=== PATIENT | male | born 1955 | race Caucasian/White ===

== ENCOUNTER 2021-06-17 10:01 | Emergency (ER) | payer OTHER, SELFPAY ==
[2021-06-17 10:03] VITALS: BP 134/75; PULSE 113; RESP 18; TEMP 36.8; O2SAT 98; BMI 24.4
--- NOTE | 2021-06-17 10:23 | EX.ED.DYSGE1 ---
HPI History of Present Illness Chief Complaint: Back Informant: patient and family Onset/Context/Timing Onset: Days Current Severity: Moderate Maximum Severity: Moderate Narrative Narrative: Patient presents with worsened back pain and left leg weakness for the past 2 to 3 days. Patient was recently diagnosed with non-small cell lung cancer and has known mets to the brain and spine. Because the leg weakness has developed in the past couple days he states his cancer doctor sent him in for an MRI of his back. He has been following with a oncologist in the [facility], but states he is going to be seeing the local oncologist here in [place]. He does not yet have an appointment. Patient states he just finished radiation to the back of his cranium. That is the only cancer treatment he has had thus far. [facility] Medical History (Updated 06/17/21 @ 13:[address] 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 Non-small cell lung cancer Allergy/AdvReac Type Severity Reaction Status Date / Time adhesive Allergy Rash Verified 06/17/21 10:04 amoxicillin Allergy Hives Verified 06/17/21 10:04 Social History Smoking Status: Former smoker ROS ROS ED Constitutional Constitutional ED: Denies chills or fever(s) Eyes Eyes: Denies change in vision ENT ENT ED: Denies sore throat Cardiovascular Cardiovascular: Denies chest pain Respiratory/Chest Respiratory/Chest: Denies cough or dyspnea Gastrointestinal Gastrointestinal: Denies abdominal pain, diarrhea, nausea or vomiting Genitourinary Genitourinary ED: Denies dysuria Musculoskeletal Musculoskeletal: Reports back pain Integumentary Denies rash Neurologic Neurologic: Reports weakness; Denies headache(s) Allergic/Immunologic Allergic/Immunologic ED: Denies urticaria EXAM Physical Exam Const Vital Signs: 06/17/21 10:03 Temperature 98.2 F Temperature Source Temporal Pulse Rate 113 H Respiratory Rate 18 Blood Pressure 134/75 H Blood Pressure Mean 94 Pulse Ox 98 Oxygen Delivery Method Room Air Positive well nourished and well developed General Appearance ED: well developed HEENT Reports normocephalic and head/scalp atraumatic Eyes PERRL and EOMs intact bilaterally Neck supple Chest Wall inspection of chest normal and palpation of chest normal Resp normal respiratory effort and clear to auscultation bilaterally Cardio regular rate and regular rhythm GI normal to inspection, nondistended, normoactive bowel sounds Palpation: soft and tender RUQ (Patient reports known mets to the right lower ribs.) Back/Spine Lumbar Spine / Lower Back: lumbar spinal tenderness Extremity normal to inspection Neuro oriented x3 Neuro Narrative: Normal sensation and strong distal pulses to the bilateral lower extremities. 1+ right patellar reflex. No patellar reflex noted on the left. Sensorium / Orientation: alert Psych mental status grossly normal Skin no rashes or lesions noted MDM MDM MDM Narrative Medical decision making narrative: Lab work and lumbar MRI ordered. Lab Data Attestation: I reviewed the patient's lab results. Labs: Laboratory Results - last 24 hr 06/17/21 06/17/21 10:30 10:30 WBC 12.7 H RBC 4.12 L Hgb 13.2 Hct 38.9 L MCV 94.4 H MCH 32.0 MCHC 33.9 RDW Std Deviation 44.4 H RDW Coeff of Shabana 12.9 Plt Count 296 MPV 8.6 Immature Gran % (Auto) 0.600 Neut % (Auto) 85.3 H Lymph % (Auto) 5.4 L Sandoval % (Auto) 8.2 Eos % (Auto) 0.3 Baso % (Auto) 0.2 Absolute Neuts (auto) 10.8 H Absolute Lymphs (auto) 0.68 L Nucleated RBC % 0 Sodium 139 Potassium 4.0 Chloride 103 Carbon Dioxide 29.0 Anion Gap 7 BUN 25 H Creatinine 1.07 Estim Creat Clear Calc 75.55 Est GFR (MDRD) Af Amer 89 Est GFR (MDRD) Non-Af 74 BUN/Creatinine Ratio 23.4 H Glucose 102 Calcium 9.2 Radiography Diagnostic Testing: Radiology Impression Lumbar Spine MRI 06/17/21 10:51 IMPRESSION: Numerous osseous lesions, consistent with metastatic disease. No demonstrated epidural disease. Moderate/severe multilevel degenerative changes. Electronically Signed: Amando Clifford MD at 13:14 EDT Tel , Service support , Treatment and Re-Evaluation Comments:: Patient was given a dose of Dilaudid prior to his MRI. MRI does reveal numerous osseous lesions consistent with metastatic disease. No demonstrated epidural disease. I was advised by nursing staff that the patient was requesting discharge as he needed to go home and take care of his dog. I presented to bedside and discussed the test results with him. At this time I will provide him with the phone number for [facility] and will discuss his case with them. He will call tomorrow for close follow-up. Discharge Plan Triage Chief Complaint: Back ED Provider: Liss Chu Dx/Rx/DC Orders Clinical Impression: Metastatic cancer to spine Instructions: Understanding Bone Metastasis [facility] Care Provider: [facility] Referrals: Mango De La Vega MD [STAFF PHYSICIAN] - As soon as possible [facility] [Primary Care Provider] - Disposition Disposition: Home, Self Care
[2021-06-17 10:50] LABS: Absolute Lymphocyte Count 0.68 X10^3/uL (0.83-4.51); Absolute Neutrophil Count 10.8 X10^3/uL (2.0-7.7); Basophil# 0.02 X10^3/uL; Basophil% 0.2 % (0-1); Eosinophil# 0.04 X10^3/uL; Eosinophils% 0.3 % (0-5); Hematocrit 38.9 % (40-54); Hemoglobin 13.2 g/dL (13.0-16.5); Lymphocyte # 0.68 X10^3/ul (0.83-4.51); Lymphocyte % 5.4 % (19-41); Mean Corp Hgb Conc 33.9 g/dL (32-36); Mean Corpuscular Volume 94.4 fL (80-94); Mean Platelet Vol. 8.6 fl (6.2-12.0); Monocyte# 1.04 X10^3/uL; Monocyte% 8.2 % (0-10); NRBC Flagged by Analyzer 0 % (0-5); Neutrophil # 10.84 X10^3/uL (2.7-7.7); Neutrophil % 85.3 % (47-70); Platelet Count 296 K/mm3 (150-450); RBC Distribution Width CV 12.9 % (11.6-14.6); RBC Distribution Width SD 44.4 fl (35.1-43.9); Red Blood Count 4.12 M/mm3 (4.6-6.2); White Blood Count 12.7 K/mm3 (4.4-11.0)
--- NOTE | 2021-06-17 10:51 | MRI_ITS ---
STUDY: MRI LUMBAR SPINE WITH AND WITHOUT CONTRAST REASON FOR EXAM: Male, 65 years old. left leg weakness -- spinal mets TECHNIQUE: Standardized fat and water weighted pulse sequences were obtained in the sagittal and axial planes. DOTAREM 17ML IV was administered for the contrast portion of the examination. COMPARISON: None FINDINGS: There is straightening of the normal lumbar lordosis. There is no substantial scoliosis. Normal conus medullaris that terminates at the L1. Bone marrow is heterogeneous with numerous vertebral and posterior element lesions, consistent with history of metastatic disease. There is no evidence of epidural disease. Multiple sacral lesions are also noted. L1-2: There is moderate disc space narrowing and endplates spondylosis. Mild disc bulge and moderate facet arthropathy with mild central canal stenosis. Minimal right and mild left foraminal stenosis. L2-3: There is severe disc space narrowing and endplates spondylosis. Moderate disc osteophyte complex and facet arthropathy with mild central canal stenosis. Moderate right and mild left foraminal stenosis. L3-4: There is moderate disc space narrowing and endplates spondylosis. Moderate disc osteophyte complex and facet arthropathy with mild central canal stenosis. Moderate right and mild left foraminal stenosis. L4-5: There is moderate disc space narrowing and endplates spondylosis. Moderate disc osteophyte complex and facet arthropathy asymmetric to the left with moderate left foraminal stenosis. No significant central canal or right foraminal stenosis. L5-S1: There is moderate disc space narrowing and endplates spondylosis. Mild disc bulge and facet arthropathy asymmetric to left with moderate left foraminal stenosis. No significant central canal or right foraminal stenosis. Normal visualized sacral ala. MRI/Spine Lumbar W/WO Contrast IMPRESSION: Numerous osseous lesions, consistent with metastatic disease. No demonstrated epidural disease. Moderate/severe multilevel degenerative changes. Electronically Signed: Amando Clifford MD at 13:14 EDT Tel , Service support ,
--- NOTE | 2021-06-17 10:53 | ED.RN ---
mri called and will not be able to get pt until 1215. Pt is aware
[2021-06-17 11:06] LABS: Anion Gap 7 (5-15); BUN 25 mg/dL (7-18); BUN/Creat Ratio 23.4 RATIO (10-20); Calcium,Total 9.2 mg/dL (8.5-10.1); Chloride 103 mmol/L (98-107); Creatinine, Serum 1.07 mg/dL (0.70-1.30); EST Glomerular Filtration Rate 74 mL/min (>60); Est Glom Filt Rate - Afr Amer 89 mL/min (>60); Estimated Creatinine Clearance 75.55 ml/min; Glucose 102 mg/dL (74-106); Sodium Level 139 mmol/L (136-145)
[2021-06-17] MEDS: Ondansetron 4 MG/2 ML Vial IV (11:46)
[2021-06-17] MEDS: HYDROmorphone 1 MG/ML Syringe IV (11:49)
--- NOTE | 2021-06-17 12:01 | ED.RN ---
PT TO MRI.PT EATING CHIPS AND CANDY BAR AND DRINKING MOUNTAIN DEW.PT TOLD NOT TO EAT ANYMORE.
[2021-06-17 14:13] VITALS: PULSE 86; RESP 19; O2SAT 96
== END 2021-06-17 14:15 | disposition home or self-care (01) ==
PROVIDERS: Emergency Provider Emergency Medicine
DX: C79.51 Secondary malignant neoplasm of bone (principal); C34.90 Malignant neoplasm of unspecified part of unspecified bronchus or lung; C79.31 Secondary malignant neoplasm of brain; Z87.891 Personal history of nicotine dependence
CPT/HCPCS: 72158; 80048; 85025; 96374; 96375; 99283; A9575; A4216; J2405

== ENCOUNTER 2021-07-01 11:06 | Inpatient (IN) | payer OTHER, SELFPAY ==
[2021-07-01 11:07] VITALS: BP 130/83; PULSE 103; RESP 16; TEMP 36.5; O2SAT 92; BMI 23.4
--- NOTE | 2021-07-01 11:58 | EDS_ITS ---
HPI History of Present Illness Chief Complaint: Confusion Informant: patient and spouse/S.O. Onset/Context/Timing Onset: Days (4) Context: Gradual Onset Timing: Waxes and wanes Quality: disoriented/confused Current Severity: Moderate Maximum Severity: Moderate Worsened by: n/a Relieved by: n/a Associated Symptoms Associated Symptoms: headache, prod cough Narrative Narrative: Patient has some type of tumor in his brain that [facility] [place], he wants to stay local for for further treatment, so was referred to oncology here, he saw a radiation oncology today. They were concerned about the 's complaints about him being more confused lately. They state this occurred in the past when he had some bleeding associated with 1 or more of the tumors, so they present for evaluation regarding this. He had a Covid test the thinks that couple weeks ago that was negative, he has had a little more shortness of breath in the mornings lately and coughing more than usual. No fevers or chills. He does have edematous legs for about the past week, he has also been on Decadron for weeks or months they are not quite sure. 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 Non-small cell lung cancer Allergy/AdvReac Type Severity Reaction Status Date / Time adhesive Allergy Rash Verified 07/01/21 11:10 amoxicillin Allergy Hives Verified 07/01/21 11:10 Social History Smoking Status: Former smoker ROS ROS ED Constitutional Constitutional ED: Denies chills or fever(s) Eyes Eyes: Denies change in vision or diplopia ENT ENT ED: Denies rhinorrhea or sore throat Cardiovascular Cardiovascular: Reports other Details: Chest soreness with coughing at times ; Denies palpitations Respiratory/Chest Respiratory/Chest: Reports as per HPI, cough and dyspnea Gastrointestinal Gastrointestinal: Denies abdominal pain, diarrhea, nausea or vomiting Genitourinary Genitourinary ED: Denies dysuria or hematuria Musculoskeletal Musculoskeletal: Denies back pain or neck pain Integumentary Denies abscess or rash Neurologic Neurologic: Reports as per HPI, behavior changes, confusion and headache(s); Denies abnormal speech, paresthesias or weakness Psychiatric Psychiatric: Denies anxiety or suicidal thoughts EXAM Physical Exam Const Vital Signs: 07/01/21 11:07 07/01/21 13:52 07/01/21 16:00 Temperature 97.7 F L Temperature Source Temporal Pulse Rate 103 H 98 Respiratory Rate 16 12 Blood Pressure 130/83 H 126/85 H Blood Pressure Mean 98 98 Pulse Ox 92 89 89 Oxygen Delivery Method Room Air Room Air Room Air Oxygen Flow Rate (L/min) 07/01/21 16:07 Temperature Temperature Source Pulse Rate 90 Respiratory Rate 16 Blood Pressure 134/89 H Blood Pressure Mean 104 Pulse Ox 96 Oxygen Delivery Method Room Air Oxygen Flow Rate (L/min) 2 Positive well nourished and well developed General Appearance ED: well developed and NAD HEENT Reports moist mucous membranes normocephalic and atraumatic Eyes PERRL and EOMs intact bilaterally Neck full ROM and supple Resp normal respiratory effort and clear to auscultation bilaterally Cardio regular rate, regular rhythm and no murmurs GI non-tender and non-distended Auscultation: normoactive bowel sounds Palpation: soft Back/Spine no CVA tenderness General Back: other FROM Extremity normal to inspection General Extremety ED: Yes edema; Negative for pulses abnormal or tenderness General Extremity: edema bilateral lower extremity Details: moderate; Negative for pulses abnormal Neuro oriented x3, CN's II-XII intact bilaterally and no sensory deficits noted Neuro Narrative: No aphasia. Oriented x3 at this time. Some conversational confusion however. Peripheral neurologic exam unremarkable. Sensorium / Orientation: awake and alert Motor Exam: strength 5/5 throughout Skin no rashes or lesions noted and no wounds MDM MDM MDM Narrative Medical decision making narrative: Patient remained clinically and hemodynamically stable, but while simply resting in bed waiting for results his oxygen saturations dropped down to 86 on room air, remained consistent with a good waveform the entire time. He was placed on 2 L nasal cannula which brought him up into the 90s. Chest x-ray suggests metastases that were already known about, as well as the possibility of a postobstructive pneumonia so a CT was advised, and this was obtained. Scan of the head shows no hemorrhage, masses that were already known, mass-effect with decrease in size of the fourth ventricle from normal; however, CT with IV contrast recommended to rule out petechial hemorrhage. This was done, it shows no hemorrhage, it does show multiple masses, the largest of which is 3 or 4 cm. The patient indicated that the gamma knife treatment he was getting was for an 8.2 cm lesion. This suggests that he did not have multiple metastases as we are seen here. He does not have an old scan for us to compare to as of recently. He states his neurosurgeon is Dr. [facility]. We attempted to call them, they do not have anyone by that name and it is unclear if this is a neurologist or a neurosurgeon. The patient CT of the chest does confirm postobstructive pneumonia, and he became hypoxic here so he was put on oxygen and treated with ceftriaxone and azithromycin empirically. Patient is not on home oxygen. I discussed with Dr. Eddy radiation oncology. He provided useful information. He states the patient did not have gamma knife at the [facility], he had whole brain radiation, the mets are known. Additionally, after our CTs were interpreted, the radiation oncology department loaded old imaging into our PACS system from [facility] where apparently he had recent studies. I am having radiology here do a comparison. The patient is aware that the radiation treatment to his spine that he is getting planned and the whole brain radiation he had our palliative treatments. He is following with a nurse practitioner in palliative care at the [facility] who is apparently coordinating his care, I had our area secretary call her and leave a message but we have received no return phone call from anyone from the [facility] at this time. The plan is to admit him here at this hospital simply due to the fact that he has an oxygen requirement for his pneumonia. Lab Data Attestation: I reviewed the patient's lab results. Labs: Laboratory Results - last 24 hr 07/01/21 07/01/21 12:10 12:10 WBC 8.9 RBC 3.96 L Hgb 12.3 L Hct 38.6 L MCV 97.5 H MCH 31.1 MCHC 31.9 L RDW Std Deviation 48.3 H RDW Coeff of Shabana 13.5 Plt Count 250 MPV 9.8 Immature Gran % (Auto) 0.900 Neut % (Auto) 88.1 H Lymph % (Auto) 6.2 L Jewell % (Auto) 4.4 Eos % (Auto) 0.2 Baso % (Auto) 0.2 Absolute Neuts (auto) 7.9 H Absolute Lymphs (auto) 0.55 L Nucleated RBC % 0 Differential Comment SCANNED Sodium 139 Potassium 4.3 Chloride 102 Carbon Dioxide 31.0 Anion Gap 6 BUN 19 H Creatinine 1.12 Estim Creat Clear Calc 72.17 Est GFR (MDRD) Af Amer 85 Est GFR (MDRD) Non-Af 70 BUN/Creatinine Ratio 17.0 Glucose 136 H Calcium 9.3 Troponin I High Sens 15 Radiography Diagnostic Testing: Radiology Impression Brain CT 07/01/21 11:58 IMPRESSION: Findings suggestive of cerebral and cerebellar metastasis. A repeat study with IV contrast or MRI is recommended for further evaluation. Electronically Signed: Robb Storm MD at 14:03 EDT , Service support , Chest X-Ray 07/01/21 12:16 IMPRESSION: Right hilar and right mediastinal fullness with findings suggestive of volume loss in the right upper lobe with the patchy infiltrate in the right lower lobe and blunting of the right cardiac phrenic angle. A CT scan of the thorax is recommended to rule out a right central mass with postobstructive pneumonitis. Blunting of the right costophrenic angle. Electronically Signed: Robb Storm MD at 12:52 EDT , Service support , Chest CT 07/01/21 14:18 IMPRESSION: Right hilar mass with evidence of a postobstructive pneumonitis of the right upper lobe and volume loss. Small right pleural effusion. Multiple small pulmonary nodules seen in the right lung. Plain metastasis. Electronically Signed: Robb Storm MD at 14:51 EDT , Service support , Brain CT 07/01/21 14:28 IMPRESSION: Multiple intracerebral and cerebellar metastasis as described with surrounding edema and mass effect. There is no evidence of a hemorrhage. Electronically Signed: Robb Storm MD at 14:58 EDT , Service support , EKG Initial EKG: Attestation: I personally reviewed and interpreted this EKG as follows: Interpretation: Sinus Rhythm and No Acute Injury Pattern Comments: normal Discharge Plan Triage Chief Complaint: Confusion ED Provider: Paddy Gan Dx/Rx/DC Orders Clinical Impression: Stage IV adenocarcinoma of lung, Bone metastases, Brain metastases, Postob structive pneumonia, Hypoxemia [facility]errals[facility] [Primary Care Provider] - Disposition Disposition: Acute Care Hospital [facility]
--- NOTE | 2021-07-01 11:58 | CT_ITS ---
STUDY: CT BRAIN WITHOUT CONTRAST REASON FOR EXAM: Male, 65 years old. Altered mental status. Visual hallucinations. History of non-small cell lung cancer. RADIATION DOSAGE (If Supplied By Facility): CTDIvol = ( 38.43 ) mGy, DLP = ( 741.51 ) mGycm TECHNIQUE: Transaxial CT imaging of the brain was performed without administration of intravenous contrast material. Individualized dose optimization techniques were used for this CT. COMPARISON: No relevant priors. FINDINGS: Normal soft tissue structures. Normal calvarium. Normal size ventricles and extra-axial spaces for the patient''s age. Focal areas of hypodensities are seen in the posterior aspect of the right and left parietal occipital lobe suggestive of edema. Focal area of decreased attenuation is seen along the medial aspect of the right occipital lobe posteriorly. Normal basal ganglia and thalami. Normal brainstem. There is evidence of decreased attenuation in the right cerebellar hemisphere with diffuse edema and decreased size of the fourth ventricle suggestive of a mass effect. There is a 4.4 mm round hypodensity in the peripheral lateral aspect of the right cerebellar hemisphere. Focal petechial hemorrhage should be ruled out. There is no intracranial hemorrhage. There are no findings of an acute ischemic infarction. Osteoma is seen in the left ethmoid sinus. CT/Brain/Head without Contrast IMPRESSION: Findings suggestive of cerebral and cerebellar metastasis. A repeat study with IV contrast or MRI is recommended for further evaluation. Electronically Signed: Robb Storm MD at 14:03 EDT , Service support ,
--- NOTE | 2021-07-01 11:58 | EKG12_ITS ---
Test Reason : Blood Pressure : / mmHG Vent. Rate : 098 BPM Atrial Rate : 098 BPM P-R Int : 130 ms QRS Dur : 090 ms QT Int : 356 ms P-R-T Axes : 051 027 043 degrees QTc Int : 454 ms Normal sinus rhythm Normal ECG Confirmed by KEN PACHECO, NESTOR ([id number]), pictures editor GEORGE MARISCAL ([id number]) on 07/05/2021 7:56:13 AM Referred By: BB/RU Confirmed By:NESTOR ROGERS MD
--- NOTE | 2021-07-01 12:16 | RAD_ITS ---
STUDY: X-RAY CHEST REASON FOR EXAM: Male, 65 years old. Cough TECHNIQUE: Single AP portable view of the chest. COMPARISON: None. FINDINGS: There is a 4.4 cm x 8.6 on the right paratracheal and right suprahilar mass with mild loss in the right upper lobe. There is elevation of the right hemidiaphragm. Focal infiltrate is also seen in the right lower lobe. Correlation with a CT scan of the thorax is recommended to rule out a right parahilar mass with postobstructive pneumonitis and mediastinal lymphadenopathy. Blunting of the right costophrenic angle. Normal size heart. Fullness of the right hilar region. Normal visualized pulmonary arteries. Normal visualized aortic arch and descending thoracic aorta. There are degenerative changes of the visualized thoracic spine. Prior right shoulder replacement. There is no demonstrated abnormality of the visualized soft tissue structures of the upper abdomen. RAD/Chest 1 View (Portable) IMPRESSION: Right hilar and right mediastinal fullness with findings suggestive of volume loss in the right upper lobe with the patchy infiltrate in the right lower lobe and blunting of the right cardiac phrenic angle. A CT scan of the thorax is recommended to rule out a right central mass with postobstructive pneumonitis. Blunting of the right costophrenic angle. Electronically Signed: Robb Storm MD at 12:52 EDT , Service support ,
[2021-07-01 12:33] LABS: Absolute Lymphocyte Count 0.55 X10^3/uL (0.83-4.51); Absolute Neutrophil Count 7.9 X10^3/uL (2.0-7.7); Basophil# 0.02 X10^3/uL; Basophil% 0.2 % (0-1); Eosinophil# 0.02 X10^3/uL; Eosinophils% 0.2 % (0-5); Hematocrit 38.6 % (40-54); Hemoglobin 12.3 g/dL (13.0-16.5); Lymphocyte # 0.55 X10^3/ul (0.83-4.51); Lymphocyte % 6.2 % (19-41); Mean Corp Hgb Conc 31.9 g/dL (32-36); Mean Corpuscular Hgb 31.1 pg (27.0-32.0); Mean Corpuscular Volume 97.5 fL (80-94); Mean Platelet Vol. 9.8 fl (6.2-12.0); Monocyte# 0.39 X10^3/uL; Monocyte% 4.4 % (0-10); NRBC Flagged by Analyzer 0 % (0-5); Neutrophil # 7.85 X10^3/uL (2.7-7.7); Neutrophil % 88.1 % (47-70); POSITIVE DIFFERENTIAL YES; Platelet Count 250 K/mm3 (150-450); RBC Distribution Width CV 13.5 % (11.6-14.6); RBC Distribution Width SD 48.3 fl (35.1-43.9); Red Blood Count 3.96 M/mm3 (4.6-6.2); White Blood Count 8.9 K/mm3 (4.4-11.0)
[2021-07-01 12:36] LABS: Differential Indicated SCAN CRITERIA MET
[2021-07-01 12:43] LABS: Anion Gap 6 (5-15); BUN 19 mg/dL (7-18); Calcium,Total 9.3 mg/dL (8.5-10.1); Chloride 102 mmol/L (98-107); Creatinine, Serum 1.12 mg/dL (0.70-1.30); EST Glomerular Filtration Rate 70 mL/min (>60); Est Glom Filt Rate - Afr Amer 85 mL/min (>60); Estimated Creatinine Clearance 72.17 ml/min; Glucose 136 mg/dL (74-106); Potassium 4.3 mmol/L (3.5-5.1); Sodium Level 139 mmol/L (136-145); Troponin-I HS 15 pg/mL (3.0-78.0)
[2021-07-01 12:48] LABS: Differential Comment SCANNED
[2021-07-01 13:52] VITALS: BP 126/85; PULSE 98; RESP 12; O2SAT 89
--- NOTE | 2021-07-01 14:18 | CT_ITS ---
STUDY: CT CHEST WITHOUT CONTRAST REASON FOR EXAM: Male, 65 years old. Cough sob abn CXR eval for pneumonia RADIATION DOSAGE (If Supplied By Facility): CTDIvol = ( 15.82 ) mGy, DLP = ( 608.67 ) mGycm TECHNIQUE: Transaxial imaging was performed without the administration of intravenous contrast material. Multiplanar coronal and sagittal images were reformatted. Individualized dose optimization techniques were used for this CT. COMPARISON: Comparison is made with prior chest radiograph done earlier today. FINDINGS: There is evidence of a 4.8 cm x 4.2 cm right hilar mass with evidence of volume loss and consolidation of the right upper lobe suggestive of a right hilar neoplastic process with postobstructive pneumonitis. There is also evidence of a small right pleural effusion. Scattered small nodular densities seen in the right lower lobe as well as in the right middle lobe and right upper lobe. This is suggestive of metastasis. Coronary artery calcification. Mildly enlarged mediastinal lymph nodes and subcarinal lymph nodes. Normal unenhanced pulmonary arteries. Normal aorta arch and descending thoracic aorta. There are multi-level degenerative changes of the thoracic spine. There is evidence of lytic destruction of the anterior aspect of the T12 vertebra with loss of height. There is also evidence of a focal lytic destruction of the L1 vertebral body. There is no demonstrated abnormality of the visualized upper abdomen. CT/Chest without Contrast IMPRESSION: Right hilar mass with evidence of a postobstructive pneumonitis of the right upper lobe and volume loss. Small right pleural effusion. Multiple small pulmonary nodules seen in the right lung. Plain metastasis. Electronically Signed: Robb Storm MD at 14:51 EDT , Service support ,
--- NOTE | 2021-07-01 14:28 | CT_ITS ---
STUDY: CT BRAIN WITH CONTRAST REASON FOR EXAM: Male, 65 years old. Confusion, headache, abn CT - r/o petechial hemorrhage RADIATION DOSAGE (If Supplied By Facility): CTDIvol = ( 44.99 ) mGy, DLP = ( 812.98 ) mGycm TECHNIQUE: Transaxial CT imaging of the brain was performed post contrast administration. The examination was performed with intravenous administration of IV 50mL [id number]-370. Individualized dose optimization techniques were used for this CT. COMPARISON: Comparison is made with prior examination done earlier today. FINDINGS: Normal soft tissue structures. Normal calvarium. There is evidence of a 3.7 cm x 2.1 cm enhancing mass in the right cerebellar hemisphere causing surrounding edema and mass effect with the decrease in size of the fourth ventricle. There is also evidence of a 1.2 cm enhancing mass in the medial posterior aspect of the left cerebellar hemisphere with mild degree of edema. There is also evidence of a 1.3 cm enhancing nodule in the posterior medial aspect of the right posterior occipital lobe. There is a 1 cm enhancing nodule in the posterior aspect of the right parieto-occipital lobe with surrounding edema and mass effect as well as a 1.1 cm enhancing nodule in the posterior medial aspect of the left parieto-occipital lobe. There is also evidence of a 0.7 cm enhancing nodule in the lateral aspect of the left parietal lobe. There is a 9.4 mm enhancing nodule in the anterior aspect of the left frontal lobe. Normal basal ganglia and thalami. Normal brainstem. There is no intracranial hemorrhage. There are no findings of an acute ischemic infarction. Normal visualized paranasal sinuses. CT/Brain/Head WITH Contrast IMPRESSION: Multiple intracerebral and cerebellar metastasis as described with surrounding edema and mass effect. There is no evidence of a hemorrhage. Electronically Signed: Robb Storm MD at 14:58 EDT , Service support ,
[2021-07-01 16:00] VITALS: O2SAT 89
[2021-07-01 16:07] VITALS: BP 134/89; PULSE 90; RESP 16; O2SAT 96
[2021-07-01] MEDS: Ceftriaxone 1 GM/50 ML BAG IV (16:52)
--- NOTE | 2021-07-01 17:33 | HP.PCM.HOS_ITS ---
Documented by User: Leon CHOPRA 07/01/21 18:09 HPI - General General Date of Admission: 07/01/21 Date of Service: 07/01/21 Chief Complaint: Shortness of breath and cough HPI Narrative HOLLY RUANO is a 65 y/o male who presents to the ED at [facility] on 07/01/2021 with a chief complaint of shortness of breath and cough x4 days. Patient reports that earlier this week he began to develop shortness of breath and cough. Patient reports that the shortness of breath and cough is worse with no exertion and is better with exertion. Patient has not seen his primary care provider or attempted to seek treatment prior to this ED visit. Patien does endorse occasionally feeling chills, however denies bloody or sputum sputum production, fever or N/V/D. Past medical history is significant for primary non-small cell lung cancer that has metastasized to the brain and spine. Patient is scheduled to receive gamma knife surgery to be NH in [place] as well as is currently on Decadron. Vital signs in the ED are stable and patient is afebrile. Patient is currently satting 98% on 2 L via nasal cannula. CBC does not demonstrate a leukocytosis and is otherwise unremarkable. BMP is unrem arkable. Urine analysis is pending. Chest x-ray demonstrates a right hilar and right mediastinal fullness with blunting of the right costophrenic angle. Chest CT is significant for right hilar mass with evidence of postobstructive pneumonitis in the right upper lobe with small right pleural effusion. Multiple small pulmonary nodules seen in the right lung as well. Brain CT does not demonstrate any evidence of acute ischemia or hemorrhage, however there are multiple intracerebral and cerebellar metastasis with surrounding edema and mass-effect. Patient has been fully vaccinated for COVID-19 and rapid Covid is negative. Patient was initiated on azithromycin and Rocephin in the ED. [facility] Medical History (Updated 07/01/21 @ 17:47 by Leon CHOPRA) Bone metastases Brain metastases Metastasis to brain Metastatic cancer to spine Non-small cell lung cancer Stage IV adenocarcinoma of lung Allergy/AdvReac Type Severity Reaction Status Date / Time adhesive Allergy Rash Verified 07/01/21 11:10 amoxicillin Allergy Hives Verified 07/01/21 11:10 Family History (Updated 07/01/21 @ 17:48 by Leon CHOPRA) Father Cancer Mother No problems noted. Family History no significant family his no significant family history (No known maternal medical history to include DM, HTN, ACS, or CAD. ) Surgical History (Updated 07/01/21 @ 17:50 by Leon CHOPRA) History of shoulder surgery Social History (Updated 07/01/21 @ 17:51 by Leon CHOPRA) Smoking Status: Former smoker how long ago did patient quit smokin years ago alcohol intake: former details: Has not drank in 30 years substance use type: does not use ROS Constitutional Constitutional: Reports chills, fatigue and weakness; Denies anorexia, change in weight, fever(s), malaise, night sweats or other Eyes Eyes: Denies blurry vision, change in eye color, change in vision, discharge from eye(s), double vision, erythema, eye pain, loss of vision or other ENT HEENT: Denies abnormal hearing, dysphagia, ear pain, epistaxis, headache(s), hearing loss, nasal congestion, nasal discharge, post nasal drip, sinus pressure, sore throat or other Cardiovascular Cardiovascular: Reports chest pain; Denies claudication, dyspnea on exertion, edema, lightheadedness, orthopnea, palpitations, paroxysmal nocturnal dyspnea, rapid heart rate, syncope or other Respiratory/Chest Respiratory/Chest: Reports cough, dyspnea and shortness of breath at rest; Denies excessive phlegm production, hemoptysis, productive cough, shortness of breath with exertion, wheezing or other Gastrointestinal Gastrointestinal: Denies abdominal pain, coffee ground emesis, constipation, diarrhea, dyspepsia, hematemesis, hematochezia, loose stools, melena, nausea, vomiting or other Genitourinary Genitourinary: Denies burning urination, difficulty urinating, dysuria, hematuria, nocturia, urinary frequency, urinary hesitancy, urinary incontinence, urinary urgency or other Musculoskeletal Musculoskeletal: Denies arthralgias, back pain, joint pain, joint stiffness, joint swelling, myalgias, neck pain or other Neurologic Neurologic: Denies abnormal gait, abnormal speech, confusion, disequilibrium, dizziness, focal weakness, headache(s), numbness, paresthesias, seizure-like activity, seizures, syncope, tingling, tremor(s) or other Psychiatric Psychiatric: Denies anxiety, depression, homicidal ideation, suicidal ideation or other Endocrine Endocrinology: Denies change in body appearance, cold intolerance, excessive sweating, heat intolerance, polydipsia, polyuria or other Hematologic/Lymphatic Hematologic/Lymphatic: Denies anemia, easy bleeding, easy bruising, lymphadenopathy or other Allergic/Immunologic Allergic/Immunologic: Denies rhinitis, hives, eczemia, asthma or other Vital Signs Vital Signs Vital Signs: 07/01/21 11:07 07/01/21 13:52 07/01/21 16:00 Temperature 97.7 F L Temperature Source Temporal Pulse Rate 103 H 98 Respiratory Rate 16 12 Blood Pressure 130/83 H 126/85 H Blood Pressure Mean 98 98 Pulse Ox 92 89 89 Oxygen Delivery Method Room Air Room Air Room Air Oxygen Flow Rate (L/min) 07/01/21 16:07 Temperature Temperature Source Pulse Rate 90 Respiratory Rate 16 Blood Pressure 134/89 H Blood Pressure Mean 104 Pulse Ox 96 Oxygen Delivery Method Room Air Oxygen Flow Rate (L/min) 2 Weight Weight: 173 lb Body Mass Index (BMI) 23.4 Physical Exam Const alert and oriented x3 General Appearance: cooperative HEENT normocephalic, head/scalp atraumatic and hearing grossly normal bilaterally Eyes PERRL, EOMs intact bilaterally and conjunctivae normal Neck no lymphadenopathy, supple and no JVD Resp Effort and Inspection: abnormal respiratory pattern and labored Auscultation: wheezes and diminished lung sounds Cardio regular rate, regular rhythm, no murmurs and no JVD GI normal to inspection, nondistended, normoactive bowel sounds, soft to palpation and non-tender Extremity normal to inspection, full ROM and no clubbing, cyanosis or edema Skin no rashes or lesions noted, no wounds, skin turgor normal and no jaundice Neuro CN's II-XII intact bilaterally Psych affect normal Results Lab / Micro Data Result Diagrams: 07/01/21 12:10 07/01/21 12:10 Labs: Laboratory Results - last 24 hr 07/01/21 12:10: WBC 8.9, RBC 3.96 L, Hgb 12.3 L, Hct 38.6 L, MCV 97.5 H, MCH 31.1, MCHC 31.9 L, RDW Std Deviation 48.3 H, RDW Coeff of Shabana 13.5, Plt Count 250, MPV 9.8, Immature Gran % (Auto) 0.900, Neut % (Auto) 88.1 H, Lymph % (Auto) 6.2 L, Gem % (Auto) 4.4, Eos % (Auto) 0.2, Baso % (Auto) 0.2, Absolute Neuts (auto) 7.9 H, Absolute Lymphs (auto) 0.55 L, Nucleated RBC % 0, Differential Comment SCANNED 07/01/21 12:10: Sodium 139, Potassium 4.3, Chloride 102, Carbon Dioxide 31.0, Anion Gap 6, BUN 19 H, Creatinine 1.12, Estim Creat Clear Calc 72.17, Est GFR (MDRD) Af Amer 85, Est GFR (MDRD) Non-Af 70, BUN/Creatinine Ratio 17.0, Glucose 136 H, Calcium 9.3, Troponin I High Sens 15 Micro: Microbiology 07/01/21 12:20 Nasal Secretion SARS-CoV-2 Antigen (Rapid) - Final Radiology Impression Brain CT 07/01/21 11:58 IMPRESSION: Findings suggestive of cerebral and cerebellar metastasis. A repeat study with IV contrast or MRI is recommended for further evaluation. Electronically Signed: Robb Storm MD at 14:03 EDT , Service support , Chest X-Ray 07/01/21 12:16 IMPRESSION: Right hilar and right mediastinal fullness with findings suggestive of volume loss in the right upper lobe with the patchy infiltrate in the right lower lobe and blunting of the right cardiac phrenic angle. A CT scan of the thorax is recommended to rule out a right central mass with postobstructive pneumonitis. Blunting of the right costophrenic angle. Electronically Signed: Robb Storm MD at 12:52 EDT , Service support , Chest CT 07/01/21 14:18 IMPRESSION: Right hilar mass with evidence of a postobstructive pneumonitis of the right upper lobe and volume loss. Small right pleural effusion. Multiple small pulmonary nodules seen in the right lung. Plain metastasis. Electronically Signed: Robb Storm MD at 14:51 EDT , Service support , Brain CT 07/01/21 14:28 IMPRESSION: Multiple intracerebral and cerebellar metastasis as described with surrounding edema and mass effect. There is no evidence of a hemorrhage. Electronically Signed: Robb Storm MD at 14:58 EDT , Service support , ADDENDUM: 07/01/21 1706 Assessment & Plan Assessment/Plan (1) Postobstructive pneumonia: (2) Stage IV adenocarcinoma of lung: QUALIFIERS: Laterality: right Qualified Code(s): C34.91 - Malignant neoplasm of unspecified part of right bronchus or lung (3) Bone metastases: (4) Brain metastases: PLAN: Patient is a 65-year-old male who presents to the ED at [facility] on 07/01/2021 with a chief complaint of shortness of breath and cough x4 days. Patient is being admitted for management of the postobstructive pneumonia. Medications will need to be reconciled when comprehensive list can be provided by family. 1)Postobstructive pneumonia Patient reports a 4-day history of shortness of breath and cough, denies blood or sputum production, fever or N/V/D. Vital signs are stable and patient is afebrile. Patient is currently satting 98% on 2 L via nasal cannula. Past medical history is significant for non-small cell lung cancer with metastasis to the brain and spine. Patient has been fully vaccinated for COVID-19 and rapid Covid was negative on admission. CT of the chest demonstrates a right hilar mass with evidence of postobstructive pneumonitis, small right pleural effusion and multiple small pulmonary nodules in the right lung. Plan; admit to [facility] for management of positive struct of pneumonia, sputum culture ordered, strep pneumo and Legionella urine antigens ordered, CBC and BMP in a.m., viral respiratory panel ordered, continue azithromycin and Rocephin, guaifenesin ordered, Solu- Medrol ordered, duo nebs ordered, Zofran ordered, PT/OT/CM consult ordered. 2) Non-small cell lung cancer w/ metastasis Patient with unspecified history of non-small cell lung cancer is metastasized to the brain and spine. Patient follows with the NH in [place] for care of his non-small cell lung cancer, and has received whole brain radiation for his brain metastasis. CT of the chest as above. Brain CT demonstrates multiple intracerebral and cerebellar metastasis with surrounding edema and mass-effect. No evidence of acute ischemia or hemorrhage. DVT prophylaxis - Lovenox CODE STATUS: Full code Advance care planning: Patient does not believe he has a living will, however has identified his son, Simon Ruano, as his primary healthcare power of employee benefits attorney. Vaccination status: Patient has been fully vaccinated for COVID-19. Patient seen by Leon Ratliff PA-C, under the supervision of Dr. Domingo. Documented by User: Dr. Debbie Domingo MD 07/01/21 19:15 HPI - General General Date of Admission: 07/01/21 [facility] Medical History (Updated 07/01/21 @ 17:47 by Leon CHOPRA) Bone metastases Brain metastases Metastasis to brain Metastatic cancer to spine Non-small cell lung cancer Stage IV adenocarcinoma of lung Allergy/AdvReac Type Severity Reaction Status Date / Time adhesive Allergy Rash Verified 07/01/21 11:10 amoxicillin Allergy Hives Verified 07/01/21 11:10 Family History (Updated 07/01/21 @ 17:48 by Leon CHOPRA) Father Cancer Mother No problems noted. Family History no significant family his Surgical History (Updated 07/01/21 @ 17:50 by Leon CHOPRA) History of shoulder surgery Social History (Updated 07/01/21 @ 17:51 by Leon CHOPRA) Smoking Status: Former smoker how long ago did patient quit smokin years ago alcohol intake: former details: Has not drank in 30 years substance use type: does not use Results Lab / Micro Data Result Diagrams: 07/01/21 12:10 07/01/21 12:10 Charges/Coding Addendum Addendum: This patient was seen in conjunction with NAV Hernández. I have independently interviewed and examined the patient and reviewed pertinent historical, laboratory, and other data. Please refer to NAV Hernández's note for his patient's presentation, findings, and recommendations. I have reviewed and his note and concur with his documentation 65-year-old male with recent diagnosis of non-small cell lung CA with mets to the brain and spine, who was following with an oncologist [facility]. He wanted to establish with [facility] as he is local. He saw Dr. Wang today in clinic. Patient was sent to the emergency department for progressive confusion and headaches. His vitals in the ED were stable except he required 2 L of oxygen Rapid Covid antigen is negative. Patient is hospice appropriate but he is currently following with palliative care. Physical Exam: Gen: Looks in some discomfort, not pale, not jaundiced, generalized edema CVS:HS I +II, regular, no murmurs RESP: Diminished at lung bases, scattered wheezes GI: BS present and normal, soft, nontender, no palpable organs EXT: Bilateral leg edema +2-3 ASSESSMENT: 1. Pneumonia, postobstructive 2. Metastatic non-small cell lung CA 3. Generalized edema Plan: Obtain records from NH Ceftriaxone and azithromycin IV Solu-Medrol Urine streptococcal and Legionella antigen, sputum cultures Breathing treatment Check respiratory panel Incentive spirometer Check 2D echo I discussed and explained in details the various types of CODE STATUS-full code, DNR CCA, DNR CC. Patient chose to be full code. He stated he knows that he is probably not going to make it. He still wants everything done to give himself a fighting chance and leave it up to God and his doctors. Time spent discussing CODE STATUS 17 minutes Visit Charges Inpatient E&M: 58268 Init Hosp L3 Procedures Hospitalists Procedures: 88975 Advncd Care Plan 30 Min
[2021-07-01 17:34] VITALS: BP 149/82; PULSE 76; RESP 16; TEMP 36.8; O2SAT 98
[2021-07-01 17:36] LABS: Bacteria 0 SEEN /hpf (None Seen); Mucous, Urine 0 SEEN /hpf (<or=2+); Red Blood Cells-Urine 0 SEEN /hpf (0-5); White Blood Cells 0 SEEN /hpf (0-5)
[2021-07-01 17:49] LABS: Color, Urine Yellow (Yellow); Glucose, Dipstick Normal (Normal); Ketone-Dipstick Negative (Negative); Leukocyte Esterase-Dipstick Negative /ul (Negative); Nitrite-Dipstick Negative (Negative); Occult Blood-Urine Negative /ul (Negative); Protein-Dipstick Negative (Negative); Urine Bilirubin Dipstick Negative (Negative); Urine Clarity Cloudy (Clear); Urine Urobilinogen Normal (Normal)
[2021-07-01 18:09] LABS: Amorphous Sediment 4+ PHOS; Squamous Epithelial Cells - UA 0-5 SEEN /hpf (0-5)
--- NOTE | 2021-07-01 19:24 | ECHOCS_ITS ---
Reason For Study: DYSPNEA/SOB Procedure This was a 2D Doppler, Color Flow transthoracic echocardiogram. Contrast injection was performed. The study was technically difficult. POOR ACCOUSTIC WINDOWS, EXAM PERFORMED WITH PATIENT IN A SITTING/RECLINING POSITION. Exam performed portable in patient room. Left Ventricle Normal left ventricle. The estimated ejection fraction is EF 55-60 %. Right Ventricle Normal right ventricle. Normal systolic function. Atria Normal left atrium. Normal right atrium. Mitral Valve The mitral valve is structurally normal. No prolapse or stenosis seen. Tricuspid Valve Normal tricuspid valve. Aortic Valve Normal aortic valve. Pulmonic Valve The pulmonic valve is not well visualized. Great Vessels Normal aortic root. Pericardium/Pleural No pericardial effusion. Medication Diluted definity 3.0ml given slow IV push to enhance endocardial definition. MMode/2D Measurements & Calculations LVIDd: 5.4 cm IVSd: 1.1 cm Ao root diam: 3.8 cm LVIDs: 3.6 cm LVPWd: 1.2 cm RVDd: 2.7 cm FS: 33.3 % LAV(MOD-bp): 31.2 ml LVAd ap4: 28.8 cm2 LVAd ap2: 26.8 cm2 LAV(MOD-bp) Indexed: 14.8 ml/m2 LVLd ap4: 8.1 cm LVLd ap2: 8.2 cm LAV(MOD-sp2): 35.4 ml EDV(MOD-sp4): 84.5 ml EDV(MOD-sp2): 74.8 ml LAV(MOD-sp4): 24.0 ml EDV(sp4-el): 86.7 ml EDV(sp2-el): 74.3 ml LVAs ap4: 19.9 cm2 LVAs ap2: 15.4 cm2 LVLs ap4: 8.3 cm LVLs ap2: 6.9 cm ESV(MOD-sp4): 41.9 ml ESV(MOD-sp2): 28.1 ml ESV(sp4-el): 40.3 ml ESV(sp2-el): 29.2 ml EF(MOD-sp4): 50.4 % EF(MOD-sp2): 62.5 % EF(sp4-el): 53.5 % SV(MOD-sp4): 42.6 ml SV(MOD-sp2): 46.7 ml SV(sp4-el): 46.4 ml LA A4 area: 11.2 cm2 LA dimension(2D): 3.2 cm RA A4 area: 10.5 cm2 Doppler Measurements & Calculations MV E max hugh: 43.1 cm/sec Lat Peak E' Hugh: 7.0 cm/sec Med Peak E' Hugh: 6.2 cm/sec MV A max hugh: 61.8 cm/sec E/E' lat: 6.2 E/E' med: 7.0 MV E/A: 0.70 PA V2 max: 85.3 cm/sec ECHO/Echo Complete W/ Contrast Interpretation Summary The estimated ejection fraction is EF 55-60 %. Normal LV systolic functhion Ordering Physician: Debbie Domingo Referring Physician: [facility] Performed By: Rosita Darling, OSORIO, RVT
[2021-07-01 19:25] VITALS: BMI 27.1
[2021-07-01 19:29] VITALS: BP 147/93; PULSE 94; RESP 18; TEMP 37.2; O2SAT 98
[2021-07-01 20:09] LABS: AST(SGOT) 35 U/L (15-37); Alanine Aminotransfer ALT/SGPT 35 U/L (16-61); Albumin, Serum 2.3 g/dL (3.2-5.0); Alkaline Phosphatase 103 U/L (45-117); Bilirubin, Direct 0.11 mg/dL (0.00-0.30); Globulin 4.4 g/dL (2.2-4.2); Protein, Total 6.7 g/dL (6.4-8.2)
[2021-07-01] MEDS: 0.9% Normal Saline 1,000 ML 75 ML IV (21:29)
[2021-07-01] MEDS: guaiFENesin 1,200 MG Tablet 1200 MG PO (21:29)
[2021-07-01] MEDS: 0.9% Saline Lock 10 ML Syringe IV (21:29)
[2021-07-01] MEDS: Memantine Hydrochloride 10 MG Tablet PO (22:56)
[2021-07-01] MEDS: oxyCODONE CR 15 MG Tablet 30 MG PO (22:56)
[2021-07-02] VITALS (13 sets, daily range): BP systolic 113–138; BP diastolic 75–89; PULSE 76–122; RESP 12–20; TEMP 36.6–37.1; O2SAT 92–99
[2021-07-02] MEDS: oxyCODONE 5 MG Tablet 10 MG PO ×3 (01:02→13:29)
[2021-07-02 05:58] LABS: Absolute Lymphocyte Count 0.73 X10^3/uL (0.83-4.51); Absolute Neutrophil Count 6.1 X10^3/uL (2.0-7.7); Basophil# 0.01 X10^3/uL; Basophil% 0.1 % (0-1); Hematocrit 35.2 % (40-54); Hemoglobin 11.4 g/dL (13.0-16.5); Lymphocyte # 0.73 X10^3/ul (0.83-4.51); Lymphocyte % 10.3 % (19-41); Mean Corp Hgb Conc 32.4 g/dL (32-36); Mean Corpuscular Hgb 31.1 pg (27.0-32.0); Mean Corpuscular Volume 95.9 fL (80-94); Mean Platelet Vol. 9.2 fl (6.2-12.0); Monocyte# 0.28 X10^3/uL; Monocyte% 3.9 % (0-10); NRBC Flagged by Analyzer 0 % (0-5); Neutrophil # 6.05 X10^3/uL (2.7-7.7); Neutrophil % 85.4 % (47-70); Platelet Count 254 K/mm3 (150-450); RBC Distribution Width CV 13.2 % (11.6-14.6); RBC Distribution Width SD 47.1 fl (35.1-43.9); Red Blood Count 3.67 M/mm3 (4.6-6.2); White Blood Count 7.1 K/mm3 (4.4-11.0)
[2021-07-02] MEDS: Enoxaparin 40 MG/0.4 ML Syringe SC (06:07)
[2021-07-02] MEDS: Docusate Sodium 100 MG/10 ML UDC 50 MG PO ×2 (06:12→20:26)
[2021-07-02 06:30] LABS: ALB/GLOB Ratio 0.5 RATIO (0.9-2.4); AST(SGOT) 29 U/L (15-37); Alanine Aminotransfer ALT/SGPT 30 U/L (16-61); Alkaline Phosphatase 99 U/L (45-117); Anion Gap 6 (5-15); BUN 17 mg/dL (7-18); BUN/Creat Ratio 21.8 RATIO (10-20); Calcium,Total 8.7 mg/dL (8.5-10.1); Chloride 102 mmol/L (98-107); Creatinine, Serum 0.78 mg/dL (0.70-1.30); EST Glomerular Filtration Rate 106 mL/min (>60); Est Glom Filt Rate - Afr Amer 128 mL/min (>60); Estimated Creatinine Clearance 103.63 ml/min; Globulin 4.1 g/dL (2.2-4.2); Glucose 120 mg/dL (74-106); Potassium 4.5 mmol/L (3.5-5.1); Protein, Total 6.1 g/dL (6.4-8.2); Sodium Level 137 mmol/L (136-145)
[2021-07-02] MEDS: Pantoprazole Sodium 20 MG Tablet PO (10:01)
[2021-07-02] MEDS: Ceftriaxone 1 GM/50 ML BAG IV (10:03)
[2021-07-02] MEDS: Lidocaine 5% Patch 3 PATCH TOPICAL (10:03)
[2021-07-02] MEDS: 0.9% Normal Saline 1,000 ML 75 ML IV ×2 (10:03→20:28)
[2021-07-02] MEDS: oxyCODONE CR 15 MG Tablet 30 MG PO ×2 (10:20→20:27)
--- NOTE | 2021-07-02 10:59 | NURSING ---
pt has refused some oral meds and his flu vavccine, his sister is coming in soon and will discuss when she arrives
[2021-07-02] MEDS: guaiFENesin 1,200 MG Tablet 1200 MG PO ×2 (11:41→20:26)
[2021-07-02] MEDS: Pregabalin 75 MG Capsule 225 MG PO (11:41)
[2021-07-02] MEDS: Memantine Hydrochloride 10 MG Tablet PO ×2 (11:42→20:26)
[2021-07-02] MEDS: Ipratropium/Albuterol Sulfate 3 ML AMPUL.NEB INHALATION ×4 (11:45→23:27)
--- NOTE | 2021-07-02 11:55 | CASEMGMT ---
CHARLEY MCHUGH made aware by [facility] nurse that [facility] CHARLEY MCHUGH in to pt room. Pt sister at bedside, pt sitting up in bed in no distress. Pt states he would [facility] to [facility], he states his care is already set up there. Made pt aware that this CM can assist with that. Pt states he wants to leave here today and go home for the weekend and [facility]. Pt sister states pt will stay for the IV atb. Pt pointed to the bag of IV atb running stating he will stay for this but then wants to leave. Asked if pt will stay for the whole course as the patient is not planned to be dc'd today. Pt states no. Sister asked if pt will be given a script for atb if he leaves. Made her and pt aware that if he decides to leave today and the doctor is not ready for him to go home that would be AMA. Explained what this meant. Pt states that is what he would like to do this. Pt aware that scripts are not given when a patient signs themselves out. Pt upset that he brought in his medications in their bottles and that the hospital would not use them. CHARLEY MCHUGH made pt aware that would be notified. Spoke to nurse Alarcon to make aware of the above. Cortexted as well. Updated Aakash REILLY also.
--- NOTE | 2021-07-02 11:57 | PCM.PN.HOSP ---
Documented by User: Leon CHOPRA 07/02/21 12:08 Subjective Subjective Patient is a 65-year-old male comfortably resting in a chair, alert and orient x3. Patient reports significant improvement of shortness of breath and cough from admission. Denies development of any new symptoms overnight. Denies chest pain, palpitations, hemoptysis, fever, chills, N/V/D. Objective Data Objective Data Vital Signs: Vital Signs Temp Pulse Resp BP Pulse Ox 98.4 F 103 H 16 138/89 H 97 07/02/21 08:07 07/02/21 08:12 07/02/21 08:12 07/02/21 08:07 07/02/21 08:12 Oxygen Flow Rate (L/min) 2 Oxygen Delivery Method Room Air Weight: 197 lb 1.492 oz Body Mass Index (BMI) 27.1 Intake & Output: Intake and Output for Last 24 Hours 06/30/21 07/01/21 07/02/21 23:59 23:59 23:59 Intake Total 305 / 705 1692.5 / 1692.5 Output Total 600 / 600 Balance 305 / 105 1092.5 / 1092.5 Lab / Micro Data Result Diagrams: 07/02/21 05:50 07/02/21 05:50 Labs: Laboratory Results - last 24 hr 07/01/21 12:10: WBC 8.9, RBC 3.96 L, Hgb 12.3 L, Hct 38.6 L, MCV 97.5 H, MCH 31.1, MCHC 31.9 L, RDW Std Deviation 48.3 H, RDW Coeff of Shabana 13.5, Plt Count 250, MPV 9.8, Immature Gran % (Auto) 0.900, Neut % (Auto) 88.1 H, Lymph % (Auto) 6.2 L, Mcpherson % (Auto) 4.4, Eos % (Auto) 0.2, Baso % (Auto) 0.2, Absolute Neuts (auto) 7.9 H, Absolute Lymphs (auto) 0.55 L, Nucleated RBC % 0, Differential Comment SCANNED 07/01/21 12:10: Sodium 139, Potassium 4.3, Chloride 102, Carbon Dioxide 31.0, Anion Gap 6, BUN 19 H, Creatinine 1.12, Estim Creat Clear Calc 72.17, Est GFR (MDRD) Af Amer 85, Est GFR (MDRD) Non-Af 70, BUN/Creatinine Ratio 17.0, Glucose 136 H, Calcium 9.3, Troponin I High Sens 15 07/01/21 12:10: Total Bilirubin 0.40, Direct Bilirubin 0.11, AST 35, ALT 35, Alkaline Phosphatase 103, Total Protein 6.7, Albumin 2.3 L, Globulin 4.4 H 07/01/21 17:32: Urine Color Yellow, Urine Clarity Cloudy, Urine pH 8.0, Ur Specific Central 1.010, Urine Protein Negative, Urine Glucose (UA) Normal, Urine Ketones Negative, Urine Occult Blood Negative, Urine Nitrite Negative, Urine Bilirubin Negative, Urine Urobilinogen Normal, Ur Leukocyte Esterase Negative, Urine RBC 0 SEEN, Urine WBC 0 SEEN, Ur Squamous Epith Cells 0-5 SEEN, Amorphous Sediment 4+ PHOS, Urine Bacteria 0 SEEN, Urine Mucus 0 SEEN 07/02/21 05:50: WBC 7.1, RBC 3.67 L, Hgb 11.4 L, Hct 35.2 L, MCV 95.9 H, MCH 31.1, MCHC 32.4, RDW Std Deviation 47.1 H, RDW Coeff of Shabana 13.2, Plt Count 254, MPV 9.2, Immature Gran % (Auto) 0.300, Neut % (Auto) 85.4 H, Lymph % (Auto) 10.3 L, Mcpherson % (Auto) 3.9, Eos % (Auto) 0.0, Baso % (Auto) 0.1, Absolute Neuts (auto) 6.1, Absolute Lymphs (auto) 0.73 L, Nucleated RBC % 0 07/02/21 05:50: Sodium 137, Potassium 4.5, Chloride 102, Carbon Dioxide 29.0, Anion Gap 6, BUN 17, Creatinine 0.78, Estim Creat Clear Calc 103.63, Est GFR (MDRD) Af Amer 128, Est GFR (MDRD) Non-Af 106, BUN/Creatinine Ratio 21.8 H, Glucose 120 H, Calcium 8.7, Total Bilirubin 0.40, AST 29, ALT 30, Alkaline Phosphatase 99, Total Protein 6.1 L, Albumin 2.0 L, Globulin 4.1, Albumin/Globulin Ratio 0.5 L Micro: Microbiology 07/01/21 21:55 Urine, Clean Catch Legionella Antigen - Final 07/01/21 21:55 Urine, Clean Catch Streptococcus pneumoniae Antigen (M - Final 07/01/21 19:45 Interface Orders Respiratory Panel (PCR) - Final 07/01/21 12:20 Nasal Secretion SARS-CoV-2 Antigen (Rapid) - Final Radiography Diagnostic Testing: Radiology Impression Brain CT 07/01/21 11:58 IMPRESSION: Findings suggestive of cerebral and cerebellar metastasis. A repeat study with IV contrast or MRI is recommended for further evaluation. Electronically Signed: Robb Storm MD at 14:03 EDT , Service support , Chest X-Ray 07/01/21 12:16 IMPRESSION: Right hilar and right mediastinal fullness with findings suggestive of volume loss in the right upper lobe with the patchy infiltrate in the right lower lobe and blunting of the right cardiac phrenic angle. A CT scan of the thorax is recommended to rule out a right central mass with postobstructive pneumonitis. Blunting of the right costophrenic angle. Electronically Signed: Robb Storm MD at 12:52 EDT , Service support , Chest CT 07/01/21 14:18 IMPRESSION: Right hilar mass with evidence of a postobstructive pneumonitis of the right upper lobe and volume loss. Small right pleural effusion. Multiple small pulmonary nodules seen in the right lung. Plain metastasis. Electronically Signed: Robb Storm MD at 14:51 EDT , Service support , Brain CT 07/01/21 14:28 IMPRESSION: Multiple intracerebral and cerebellar metastasis as described with surrounding edema and mass effect. There is no evidence of a hemorrhage. Electronically Signed: Robb Storm MD at 14:58 EDT , Service support , ADDENDUM: 07/01/21 6826 Physical Exam Const alert, oriented x3 and no apparent distress HEENT head/scalp atraumatic Head and Scalp: normocephalic Eyes PERRL, EOMs intact bilaterally and conjunctivae normal Neck no lymphadenopathy, supple and no JVD Resp Effort and Inspection: labored Auscultation: crackles and diminished lung sounds Cardio regular rate, regular rhythm, no murmurs and no JVD GI normal to inspection, nondistended, normoactive bowel sounds, soft to palpation and non-tender Extremity normal to inspection, full ROM and no clubbing, cyanosis or edema Skin no rashes or lesions noted, no wounds, skin turgor normal and no jaundice Neuro CN's II-XII intact bilaterally Psych affect normal Assessment & Plan Assessment/Plan (1) Postobstructive pneumonia: PLAN: Day 1 Discharge planning current plan is for patient to return home, case management following. 1)Postobstructive pneumonia Patient is currently satting at 100% on room air and is afebrile. Patient did spike a variable tachycardia this morning, but patient does not complain of any chest pain or does not appear in any acute distress. CBC does not demonstrate a leukocytosis. Legionella and strep pneumo urinary antigens negative. Viral respiratory panel negative. Rapid Covid negative. Sputum culture ordered/pending. Plan; remain admitted overnight, CBC and BMP in a.m., continue azithromycin and Rocephin, continue guaifenesin, continue Solu-Medrol, continue bronchodilators. 2) Non-small cell lung cancer w/ metastasis Patient with unspecified history of non-small cell lung cancer is metastasized to the brain and spine. Patient follows with [facility] [place] for care of his non-small cell lung cancer, and has received whole brain radiation for his brain metastasis. CT of the chest as above. Brain CT demonstrates multiple intracerebral and cerebellar metastasis with surrounding edema and mass-effect. No evidence of acute ischemia or hemorrhage. 3) Depression/anxiety Continue Remeron. 4) dementia Continue memantine. 5) GERD Continue PPI. DVT prophylaxis - Lovenox Patient seen by Leon Ratliff PA-C, under the supervision of Dr. Hernandez. Documented by User: Dr. Bigg Hernandez MD 07/02/21 15:47 Subjective Subjective Patient denies any chest pain. No shortness of breath at rest but gets dyspnea on exertion. History of non-small cell cancer [facility]. Objective Data Lab / Micro Data Result Diagrams: 07/02/21 05:50 07/02/21 05:50 Physical Exam Narrative Physical exam General: Alert, Oriented x3, Cooperative HEENT: Atraumatic, PERRLA, EOMI, Normocephalic Oral: No Gingival or Mucosal Lesions/ Ulcerations Neck: Supple, No JVD, Negative Carotid Bruits Lungs: Air entry diminished in bilateral lung base, right more than left. Mild basilar crepitation. Cardiovascular: Regular rate, Regular Rhythm, Normal S1, Normal S2, No murmurs Abdomen: Bowel Sounds Present, Soft, Non Tender, Non-Distended : No renal angle tenderness. No suprapubic tenderness. Extremities: Bilateral 2+ leg edema, Capillary Refill Less than 3 Seconds Skin: No rashes, No breakdown Musculoskeletal: No Tenderness to Palpation of Joints or Extremities Neurological: Cranial nerves II-XII grossly intact, DTR 2+/4 and Symmetrical, Neuro grossly intact Psych/Mental Status: Normal Affect, Appropriate. Assessment & Plan Assessment/Plan (1) Postobstructive pneumonia: PLAN: This patient was seen in conjunction with NAV Sanders. I have independently interviewed and examined the patient and reviewed pertinent history, examination findings, laboratory and plan of management. I have reviewed the note and agree with the documented findings with the few additional points. In brief, patient is admitted for shortness of breath, and cough for 4 days. Patient has history of non-small cell cancer with metastasis to brain as evidenced by the CT head. CT chest shows 4.8 cm x 4.2 cm right hilar mass with evidence of volume loss and consolidation of the right upper lobe suggestive of a right hilar neoplastic process with postobstructive pneumonitis and small right pleural effusion. Patient had recently negative PCR for viral respiratory pathogens including influenza and parainfluenza, chlamydia and mycoplasma. Sputum culture is pending. Urinary antigens and respiratory panel negative as mentioned above. On IV ceftriaxone and Zithromax. Patient in the morning wanted to go home and [facility] but Leon and I talked to the patient and patient's son agreed to stay. Rest as mentioned above. I have discussed my assessment with NAV Sanders and orders have been reviewed. Active Medications Acetaminophen (Acetaminophen 325 Mg Tablet) 650 mg PO Q6H PRN PRN PRN Reason: Pain Score 1-10/Temp > 100.7 F Al Hydroxide/Mg Hydroxide (Mag Hydrox/Al Hydrox/Simeth 30 Ml Udc) 30 ml PO Q6H PRN PRN PRN Reason: Gastric Burning Last Admin: 07/02/21 13:30 Dose: 30 ml Documented by: Albuterol Sulfate (Albuterol 2.5 Mg/3 Ml Vial.Neb.) 2.5 mg INHALATION Q4H PRN PRN PRN Reason: breathing Albuterol/Ipratropium (Ipratropium/Albuterol Sulfate 3 Ml Ampul.Neb) 3 ml INHALATION Q4H.RT [facility] Last Admin: 07/02/21 15:17 Dose: 3 ml Documented by: Docusate Sodium (Docusate Sodium 100 Mg/10 Ml Udc) 50 mg PO BID [facility] Last Admin: 07/02/21 06:12 Dose: 50 mg Documented by: Enoxaparin Sodium (Enoxaparin 40 Mg/0.4 Ml Syringe) 40 mg SC DAILY@0600 [facility] Last Admin: 07/02/21 06:07 Dose: 40 mg Documented by: Guaifenesin (Guaifenesin 1,200 Mg Tablet) 1,200 mg PO BID [facility] Last Admin: 07/02/21 11:41 Dose: 1,200 mg Documented by: Sodium Chloride () 1,000 mls @ 75 mls/hr IV .[id number] [facility] Last Admin: 07/02/21 10:03 Dose: 75 mls/hr Documented by: Ceftriaxone Sodium (Rocephin) 1 gm in 50 mls @ 100 mls/hr IV Q24 [facility] Last Infusion: 07/02/21 10:35 Dose: Infused Documented by: Azithromycin 500 mg/ Dextrose 255 mls @ 250 mls/hr IV Q24 [facility] Last Infusion: 07/02/21 14:19 Dose: Infused Documented by: Sodium Chloride () 250 mls @ 15 mls/hr IV .[id number] PRN PRN Reason: Saline Flush Sodium Chloride () 250 mls @ 15 mls/hr IV .[id number] PRN PRN Reason: Additional IVPB Infusion Lidocaine (Lidocaine 5% Patch) 3 patch TOPICAL DAILY [facility]; Protocol Last Admin: 07/02/21 10:03 Dose: 3 patch Documented by: Memantine (Memantine Hydrochloride 10 Mg Tablet) 10 mg PO BID [facility] Last Admin: 07/02/21 11:42 Dose: 10 mg Documented by: Methylprednisolone (Methylprednisolone 40 Mg/Ml Vial) 40 mg IV Q8 [facility] Last Admin: 07/02/21 13:30 Dose: 40 mg Documented by: Mirtazapine (Mirtazapine 15 Mg Tablet) 15 mg PO QHS [facility] Ondansetron HCl (Ondansetron 4 Mg/2 Ml Vial) 4 mg IV Q8H PRN PRN PRN Reason: NAUSEA/VOMITING Oxycodone HCl (Oxycodone Cr 15 Mg Tablet) 30 mg PO BID [facility] Last Admin: 07/02/21 10:20 Dose: 30 mg Documented by: Oxycodone HCl (Oxycodone 5 Mg Tablet) 10 mg PO Q4H PRN PRN PRN Reason: Pain -07/11 Last Admin: 07/02/21 13:29 Dose: 10 mg Documented by: Pantoprazole Sodium (Pantoprazole Sodium 20 Mg Tablet) 20 mg PO DAILY [facility] Last Admin: 07/02/21 10:01 Dose: 20 mg Documented by: Pregabalin (Pregabalin 75 Mg Capsule) 225 mg PO DAILY [facility] Last Admin: 07/02/21 11:41 Dose: 225 mg Documented by: Sodium Chloride (0.9% Saline Lock 10 Ml Syringe) 10 - 40 ml IV UD PRN PRN Reason: SALINE FLUSH Last Admin: 07/01/21 21:29 Dose: 10 ml Documented by: Charges/Coding Visit Charges Inpatient E&M: 16064 Subs Hosp L2
--- NOTE | 2021-07-02 12:27 | CASEMGMT ---
Social Work Note If pt leaves AMA, SW will make APS report. Meggan Adams [employer], ED TECH
--- NOTE | 2021-07-02 12:29 | NURSING ---
pt and sister are insisting pt wants to [facility] go [facility], [facility], we have checked
[2021-07-02] MEDS: Mag Hydrox/Al Hydrox/Simeth 30 ML UDC PO (13:30)
--- NOTE | 2021-07-02 15:50 | CASEMGMT ---
CHARLEY MCHUGH Assessment: Face to Face with pt for initial transition planning/care coordination assessment. CHARLEY MCHUGH introduced self and role at [facility], pt voices understanding and consents to assessment. Pt is A/O x4 and answers all questions appropriately at this time. Pt sitting on side of bed with OT at bedside in no distress. Care providers, pharmacy, and demographics verified/updated. Admitting Dx: PNA PCP:Selina Still Specialists:Sridevi, oncologist at [place] Preferred Pharmacy: [facility] for s[facility]t, otherwise [facility]. Insurance: [facility] Prescription Benefit: yes LW/HPOA: Pt reports his son is his DPOA and he has a LW as well. He is aware that it is not on file at [facility] and he may bring in to be scanned into the chart. LNOK: Greg Cervantes, son; Rosita Kimball, sister Living Arrangements: Pt lives with son in a ground level apt with 4 steps to enter with a rail. Pt states his family assists him with ADL's and IADL's. Pt denies concerns at home. Transportation: Pt does not drive. He has family who transports him to medical appts. DME/HHC/SNF: Pt has a front wheeled walker, rollator, cane and an O2 concentrator with portability at home. [facility]. Pt states no concerns with going home at time of dc. Pt states no further concerns/needs. CM to follow. Advised pt to ask CM if any further question/concerns/needs arise, voices understanding. Pt Goal: Home with family support. Plan: Home with family support. TC to pt son to verify assessment questions. He states an O2 concentrator was delivered to the patien's home yesterday. Pt has not started using it yet. He confirms assessment questions. Denies questions of his own.
--- NOTE | 2021-07-02 18:47 | PCS.PANDOC ---
PANDEMIC DOCUMENTATION INITIATED: Date: 05/17/2021 Time: 190
[2021-07-02] MEDS: Mirtazapine 15 MG Tablet PO (20:27)
[2021-07-02] MEDS: Senna Tablet 2 TABLET PO (23:33)
[2021-07-03] MEDS: oxyCODONE 5 MG Tablet 10 MG PO ×2 (02:21→06:40)
[2021-07-03 06:35] LABS: Absolute Lymphocyte Count 0.79 X10^3/uL (0.83-4.51); Absolute Neutrophil Count 7.4 X10^3/uL (2.0-7.7); Basophil# 0.01 X10^3/uL; Basophil% 0.1 % (0-1); Hematocrit 35.4 % (40-54); Hemoglobin 11.6 g/dL (13.0-16.5); Lymphocyte # 0.79 X10^3/ul (0.83-4.51); Lymphocyte % 8.9 % (19-41); Mean Corp Hgb Conc 32.8 g/dL (32-36); Mean Corpuscular Hgb 31.3 pg (27.0-32.0); Mean Corpuscular Volume 95.4 fL (80-94); Mean Platelet Vol. 9.5 fl (6.2-12.0); Monocyte# 0.58 X10^3/uL; Monocyte% 6.5 % (0-10); NRBC Flagged by Analyzer 0 % (0-5); Neutrophil % 83.6 % (47-70); Platelet Count 284 K/mm3 (150-450); RBC Distribution Width CV 13.2 % (11.6-14.6); RBC Distribution Width SD 46.2 fl (35.1-43.9); Red Blood Count 3.71 M/mm3 (4.6-6.2); White Blood Count 8.9 K/mm3 (4.4-11.0)
[2021-07-03 06:37] VITALS: BP 142/86; PULSE 94; RESP 18; TEMP 37.1; O2SAT 94
[2021-07-03] MEDS: Enoxaparin 40 MG/0.4 ML Syringe SC (06:40)
[2021-07-03 06:52] LABS: Anion Gap 7 (5-15); BUN 18 mg/dL (7-18); BUN/Creat Ratio 22.4 RATIO (10-20); Calcium,Total 8.8 mg/dL (8.5-10.1); Chloride 103 mmol/L (98-107); EST Glomerular Filtration Rate 103 mL/min (>60); Est Glom Filt Rate - Afr Amer 124 mL/min (>60); Estimated Creatinine Clearance 101.04 ml/min; Glucose 116 mg/dL (74-106); Potassium 4.2 mmol/L (3.5-5.1); Sodium Level 138 mmol/L (136-145)
[2021-07-03] MEDS: Ipratropium/Albuterol Sulfate 3 ML AMPUL.NEB INHALATION ×2 (07:01→10:59)
[2021-07-03 07:02] VITALS: RESP 12
[2021-07-03] MEDS: Ceftriaxone 1 GM/50 ML BAG IV (09:26)
[2021-07-03] MEDS: Pantoprazole Sodium 20 MG Tablet PO (09:27)
[2021-07-03] MEDS: guaiFENesin 1,200 MG Tablet 1200 MG PO (09:27)
[2021-07-03] MEDS: Memantine Hydrochloride 10 MG Tablet PO (09:27)
[2021-07-03] MEDS: Lidocaine 5% Patch 3 PATCH TOPICAL (09:28)
[2021-07-03] MEDS: oxyCODONE CR 15 MG Tablet 30 MG PO (09:37)
[2021-07-03] MEDS: Pregabalin 75 MG Capsule 225 MG PO (09:37)
[2021-07-03] MEDS: Senna Tablet 2 TABLET PO (09:37)
--- NOTE | 2021-07-03 10:55 | PCM.DC ---
Discharge Instructions Diet Discharge Diet: No restrictions Activity Discharge Activity: Return to Normal Activity Weight Bearing Status: Weight bearing as tolerated Dressing / Incision Call your doctor if you observe: Fever of 101 or Higher, Numbness or Tingling, Shortness of breath, Dizziness, Chest pain, Increased palpitations (irregular heartbeat) and Calf discomfort Follow Up Care Please Follow Up With: Primary care provider When: Within the next two weeks. Test Results: Test results from this visit will be discussed in further detail at your follow-up appointment, if applicable. Discharge Plan Admission Admit Date/Time: 07/01/21 17:04 Primary Reason for Your Visit: Shortness of breath + Cough Attending Provider: Bigg Hernandez Primary Care Provider: [facility] Discharge Orders/Prescriptions Prescriptions: New cefdinir 300 mg capsule 300 mg PO BID Qty: 10 RF: 0 Continued dexamethasone 2 mg Tablet 2 mg PO 1999 RF: 0 mirtazapine 15 mg Tablet 15 mg PO QHS RF: 0 oxycodone 30 mg Tablet 30 mg PO BID RF: 0 ondansetron 4 mg Tablet,Disintegrating 4 mg PO Q8H RF: 0 oxycodone 5 mg Tablet 5 - 15 mg PO Q4H PRN PRN (Reason: Pain) RF: 0 memantine 10 mg Tablet 10 mg PO BID RF: 0 docusate sodium 50 mg Tablet 50 mg PO BID RF: 0 dexamethasone 4 mg Tablet 4 mg PO DAILY RF: 0 lidocaine [Lidoderm] 5 % Adhesive Patch,Medicated 3 patch TOPICAL DAILY RF: 0 omeprazole 20 mg Capsule,Delayed Release(Dr/Ec) 20 mg PO DAILY RF: 0 albuterol 90 mcg/actuation Aerosol 90 mcg INHALATION Q4H PRN PRN (Reason: breathing) RF: 0 pregabalin 225 mg Capsule 225 mg PO DAILY RF: 0 Referrals / Follow Up: [facility] [Primary Care Provider] - Within 2 Weeks Disposition Disposition (needs filled in before D/C Order can be placed): Home, Self Care
[2021-07-03 10:59] VITALS: PULSE 97; RESP 20; O2SAT 94
[2021-07-03 11:00] VITALS: BP 140/81; PULSE 91; RESP 18; TEMP 37.1; O2SAT 92
[2021-07-03] MEDS: Bisacodyl 10 MG Suppository RC (11:51)
[2021-07-03 11:55] VITALS: BP 140/81; PULSE 91; RESP 18; TEMP 37.1; O2SAT 92
--- NOTE | 2021-07-03 13:22 | DS.PCM_ITS ---
Documented by User: Leon CHOPRA 07/03/21 13:28 Providers Date of Admission: 07/01/21 Primary Care Physician: [facility] Reason For Visit: PNEUMONIA Diagnosis Discharge Diagnosis (1) Postobstructive pneumonia: Status: Acute Code(s): J18.9 - Pneumonia, unspecified organism Medications at Discharge Home Medications albuterol 90 mcg INHALATION Q4H PRN PRN 07/01/21 dexamethasone 2 mg PO 2000 07/01/21 dexamethasone 4 mg PO DAILY 07/01/21 docusate sodium 50 mg PO BID 07/01/21 lidocaine [Lidoderm] 3 patch TOPICAL DAILY 07/01/21 memantine 10 mg PO BID 07/01/21 mirtazapine 15 mg PO QHS 07/01/21 omeprazole 20 mg PO DAILY 07/01/21 ondansetron 4 mg PO Q8H 07/01/21 oxycodone 5 - 15 mg PO Q4H PRN PRN 07/01/21 oxycodone 30 mg PO BID 07/01/21 pregabalin 225 mg PO DAILY 07/01/21 Hospital Course Summary of Care Provided Minutes Spent on Discharge: 35 Hospital Course: Disposition: Patient to be discharged home. 1)Postobstructive pneumonia w/ pneumonitis Patient is currently satting at 100% on room air and is afebrile. Patient did spike a variable tachycardia this morning, but patient does not complain of any chest pain or does not appear in any acute distress. CBC does not demonstrate a leukocytosis. Legionella and strep pneumo urinary antigens negative. Viral respiratory panel negative. Rapid Covid negative. Sputum culture ordered/pending. Plan; continue cefdinir 30 mg p.o. twice daily x5 days, follow-up with primary care provider within the next 2 weeks, continue dexamethasone. 2) Non-small cell lung cancer w/ metastasis Patient with unspecified history of non-small cell lung cancer is metastasized to the brain and spine. Patient follows with [facility] [place] for care of his non-small cell lung cancer, and has received whole brain radiation for his brain metastasis. CT of the chest as above. Brain CT demonstrates multiple int racerebral and cerebellar metastasis with surrounding edema and mass-effect. No evidence of acute ischemia or hemorrhage. 3) Depression/anxiety Continue Remeron. 4) dementia Continue memantine. 5) GERD Continue PPI. Patient seen by Leon Ratliff PA-C, under the supervision of Dr. Hernandez. Physical Exam Narrative Patient is a 65-year-old male comfortably resting in bed, alert and orient x3. Patient reports significant improvement of shortness of breath and cough from admission. Denies development of any new symptoms overnight. Denies chest pain, shortness of breath, palpitations, hemoptysis, sputum production, fever, chills, N/V/D. Const alert, oriented x3 and no apparent distress HEENT normocephalic, head/scalp atraumatic and hearing grossly normal bilaterally Eyes PERRL, EOMs intact bilaterally and conjunctivae normal Neck no lymphadenopathy, supple and no JVD Resp normal respiratory effort, no retractions and no use of accessory muscles Auscultation: diminished lung sounds Cardio regular rate, regular rhythm, no murmurs and no JVD GI normal to inspection, nondistended, normoactive bowel sounds, soft to palpation and non-tender Extremity normal to inspection, full ROM and no clubbing, cyanosis or edema Skin no rashes or lesions noted, no wounds and skin turgor normal Neuro CN's II-XII intact bilaterally Psych affect normal Weight / BMI Weight Weight: 198 lb Body Mass Index (BMI) 27.1 ABG / Lab / Microbiology Data Result Diagrams: 07/03/21 06:03 07/03/21 06:03 Laboratory: Laboratory Results - last 24 hr 07/03/21 06:03: WBC 8.9, RBC 3.71 L, Hgb 11.6 L, Hct 35.4 L, MCV 95.4 H, MCH 31.3, MCHC 32.8, RDW Std Deviation 46.2 H, RDW Coeff of Shabana 13.2, Plt Count 284, MPV 9.5, Immature Gran % (Auto) 0.900, Neut % (Auto) 83.6 H, Lymph % (Auto) 8.9 L, [place] % (Auto) 6.5, Eos % (Auto) 0.0, Baso % (Auto) 0.1, Absolute Neuts (auto) 7.4, Absolute Lymphs (auto) 0.79 L, Nucleated RBC % 0 07/03/21 06:03: Sodium 138, Potassium 4.2, Chloride 103, Carbon Dioxide 28.0, Anion Gap 7, BUN 18, Creatinine 0.80, Estim Creat Clear Calc 101.04, Est GFR (MDRD) Af Amer 124, Est GFR (MDRD) Non-Af 103, BUN/Creatinine Ratio 22.4 H, Glucose 116 H, Calcium 8.8 Microbiology: Microbiology 07/02/21 00:50 Sputum, Expectorated/Coughed Gram Stain - Final 07/02/21 00:50 Sputum, Expectorated/Coughed Respiratory Culture - Preliminary Appears to be normal respiratory hermelinda. Further studies to follow. 07/01/21 21:55 Urine, Clean Catch Legionella Antigen - Final 07/01/21 21:55 Urine, Clean Catch Streptococcus pneumoniae Antigen (M - Final 07/01/21 19:45 Interface Orders Respiratory Panel (PCR) - Final 07/01/21 12:20 Nasal Secretion SARS-CoV-2 Antigen (Rapid) - Final Radiography Diagnostic Testing: Radiology Impression Echocardiogram 07/01/21 19:24 Interpretation Summary The estimated ejection fraction is EF 55-60 %. Normal LV systolic functhion Ordering Physician: Debbie Domingo Referring Physician: [facility] Performed By: Rosita Darling, OSORIO, RVT D/C Instructions Discharge Diet: No restrictions Weight Bearing Status: Weight bearing as tolerated Call your doctor if you observe: Fever of 101 or Higher, Numbness or Tingling, Shortness of breath, Dizziness, Chest pain, Increased palpitations (irregular heartbeat) and Calf discomfort Please Follow Up With: Primary care provider When: Within the next two weeks. Meaningful Use Info Meaningful Use Diagnoses (Choose all that apply): None applicable Discharge Plan Admission Admit Date/Time: 07/01/21 17:04 Primary Reason for Your Visit: Postobstructive pneumonia, NSCLC metastasis, stage IV Attending Provider: Bigg Hernandez Primary Care Provider: [facility] Discharge Orders/Prescriptions Prescriptions: Continued dexamethasone 2 mg Tablet 2 mg PO 1999 RF: 0 mirtazapine 15 mg Tablet 15 mg PO QHS RF: 0 oxycodone 30 mg Tablet 30 mg PO BID RF: 0 ondansetron 4 mg Tablet,Disintegrating 4 mg PO Q8H RF: 0 oxycodone 5 mg Tablet 5 - 15 mg PO Q4H PRN PRN (Reason: Pain) RF: 0 memantine 10 mg Tablet 10 mg PO BID RF: 0 docusate sodium 50 mg Tablet 50 mg PO BID RF: 0 dexamethasone 4 mg Tablet 4 mg PO DAILY RF: 0 lidocaine [Lidoderm] 5 % Adhesive Patch,Medicated 3 patch TOPICAL DAILY RF: 0 omeprazole 20 mg Capsule,Delayed Release(Dr/Ec) 20 mg PO DAILY RF: 0 albuterol 90 mcg/actuation Aerosol 90 mcg INHALATION Q4H PRN PRN (Reason: breathing) RF: 0 pregabalin 225 mg Capsule 225 mg PO DAILY RF: 0 Referrals / Follow Up: [facility],[place] [Primary Care Provider] - Within 2 Weeks Disposition Disposition (needs filled in before D/C Order can be placed): Home, Self Care Documented by User: Dr. Bigg Hernandez MD 07/03/21 13:53 Providers Date of Admission: 07/01/21 Reason For Visit: PNEUMONIA Medications at Discharge Home Medications albuterol 90 mcg INHALATION Q4H PRN PRN 07/01/21 dexamethasone 2 mg PO 199907/01/21 dexamethasone 4 mg PO DAILY 07/01/21 docusate sodium 50 mg PO BID 07/01/21 lidocaine [Lidoderm] 3 patch TOPICAL DAILY 07/01/21 memantine 10 mg PO BID 07/01/21 mirtazapine 15 mg PO QHS 07/01/21 omeprazole 20 mg PO DAILY 07/01/21 ondansetron 4 mg PO Q8H 07/01/21 oxycodone 5 - 15 mg PO Q4H PRN PRN 07/01/21 oxycodone 30 mg PO BID 07/01/21 pregabalin 225 mg PO DAILY 07/01/21 Hospital Course Summary of Care Provided Hospital Course: This patient was seen in conjunction with NAV Sanders. I have independently interviewed and examined the patient and reviewed pertinent history, examination findings, laboratory and plan of management. I have reviewed the note and agree with the documented findings with the few additional points. In brief, patient is admitted for shortness of breath, and cough for 4 days. Patient has history of non-small cell cancer with metastasis to brain as evidenced by the CT head. CT chest shows 4.8 cm x 4.2 cm right hilar mass with evidence of volume loss and consolidation of the right upper lobe suggestive of a right hilar neoplastic process with postobstructive pneumonitis and small right pleural effusion. Patient had recently negative PCR for viral respiratory pathogens including influenza and parainfluenza, chlamydia and mycoplasma. Sputum culture showed normal respiratory hermelinda. Urinary antigens and respiratory panel negative as mentioned above. Had 3 days of IV ceftriaxone and Zithromax. Patient in the morning wanted to go home and follow [facility] on Monday but Leon and I talked to the patient yesterday and today Patient is discharged on cefdinir for 5 more days. Currently patient is not h ypoxic. Rest as mentioned above. Discharge medication reconciliation done. Discharge follow-up instructions completed. Discharge process discussed with the patient and all questions were answered to patient's satisfaction. Total time spent, exact 35 minutes on discharge meds reconciliation, exa mination, coordination of care with nurses and ancillary staff, review of imaging and blood test and discussion with the patient on follow-up instructions. Advised follow-up with PA oncologist and hide and skin processing worker. I have discussed my assessment with NAV Sanders and orders have been reviewed. Physical Exam Narrative Patient not in respiratory distress. Currently on room air. He states patient has home oxygen and [employer] nebulization equipment through [facility]. Physical exam General: Alert, Oriented x3, Cooperative HEENT: Atraumatic, PERRLA, EOMI, Normocephalic Oral: No Gingival or Mucosal Lesions/ Ulcerations Neck: Supple, No JVD, Negative Carotid Bruits Lungs: Air entry diminished in bilateral lung base, right more than left. No crepitations. Cardiovascular: Regular rate, Regular Rhythm, Normal S1, Normal S2, No murmurs Abdomen: Bowel Sounds Present, Soft, Non Tender, Non-Distended : No renal angle tenderness. No suprapubic tenderness. Extremities: Bilateral 1+ leg edema, Capillary Refill Less than 3 Seconds Skin: No rashes, No breakdown Musculoskeletal: No Tenderness to Palpation of Joints or Extremities Neurological: Cranial nerves II-XII grossly intact, DTR 2+/4 and Symmetrical, Neuro grossly intact Psych/Mental Status: Normal Affect, Appropriate. ABG / Lab / Microbiology Data Result Diagrams: 07/03/21 06:03 07/03/21 06:03 Discharge Plan Admission Admit Date/Time: 07/01/21 17:04 Primary Reason for Your Visit: Postobstructive pneumonia, NSCLC metastasis, stage IV Attending Provider: Bigg Hernandez Primary Care Provider: [facility] Discharge Orders/Prescriptions Prescriptions: Continued dexamethasone 2 mg Tablet 2 mg PO 1999 RF: 0 mirtazapine 15 mg Tablet 15 mg PO QHS RF: 0 oxycodone 30 mg Tablet 30 mg PO BID RF: 0 ondansetron 4 mg Tablet,Disintegrating 4 mg PO Q8H RF: 0 oxycodone 5 mg Tablet 5 - 15 mg PO Q4H PRN PRN (Reason: Pain) RF: 0 memantine 10 mg Tablet 10 mg PO BID RF: 0 docusate sodium 50 mg Tablet 50 mg PO BID RF: 0 dexamethasone 4 mg Tablet 4 mg PO DAILY RF: 0 lidocaine [Lidoderm] 5 % Adhesive Patch,Medicated 3 patch TOPICAL DAILY RF: 0 omeprazole 20 mg Capsule,Delayed Release(Dr/Ec) 20 mg PO DAILY RF: 0 albuterol 90 mcg/actuation Aerosol 90 mcg INHALATION Q4H PRN PRN (Reason: breathing) RF: 0 pregabalin 225 mg Capsule 225 mg PO DAILY RF: 0 Referrals / Follow Up: [facility] [Primary Care Provider] - Within 2 Weeks Disposition Disposition (needs filled in before D/C Order can be placed): Home, Self Care Charges/Coding Visit Charges Inpatient E&M: 67979 Disch Hosp
--- NOTE | 2021-07-03 16:38 | CM.ED ---
SW Note SW called manager change Deanna. Patient was discharged home. Plan: Home [facility]
--- NOTE | 2021-07-05 14:53 | CASEMGMT ---
CHARLEY MCHUGH Discharge Follow Up COVID Phone Call: LACE: 11 Strata: 3 Call Date: 07/05/21 Discharge Date: 07/03/21 Time of Call:1453 Duration:<1 min Admitting Dx:PNA CHARLEY MCHUGH attempted to completed follow up phone call after recent hospitalization, no answer and could not identify name on voicemail- no message left.
== END 2021-07-03 13:30 | disposition home or self-care (01) | DRG 193 ==
LOC: ED 16:46 → MS3 17:23
PROVIDERS: Physician Assistant; Admitting Provider Internal Medicine; Emergency Provider Emergency Medicine; Visit Provider Internal Medicine
DX: J18.9 Pneumonia, unspecified organism (principal); G93.6 Cerebral edema; C79.31 Secondary malignant neoplasm of brain; C79.51 Secondary malignant neoplasm of bone; C34.91 Malignant neoplasm of unspecified part of right bronchus or lung; R09.02 Hypoxemia; Z20.822 Contact with and (suspected) exposure to COVID-19; F03.90 Unspecified dementia, unspecified severity, without behavioral disturbance, psychotic disturbance, mood disturbance, and anxiety; K21.9 Gastro-esophageal reflux disease without esophagitis; Z87.891 Personal history of nicotine dependence
CPT/HCPCS: 36415; 70450; 70460; 71045; 71250; 80048; 80053; 80076; 81001; 84484; 85025; 87070; 87205; 87426; 87449; 87633; 93005; 93306; 94640; 97162; 97166; 97530; 97802; 99285; J7030; J7040; Q9957; Q9967; A4216; C8929; J3490